=== PATIENT | male | born 1990 | race Caucasian/White ===

== ENCOUNTER 2020-08-28 09:24 | Emergency (ER) | payer OTHER ==
--- OUTSIDE RECORDS SUMMARY | 2020-08-28 09:26 | XMS REPORT | Continuity of Care Document ---
:1990 Author Organization [facility] t Address [address] [place] [address] Care Team Providers Name Role Phone Lab, Fam Pob I Attending Clinician Unavailable Problems This patient has no known problems. Allergies, Adverse Reactions, Alerts This patient has no known allergies or adverse reactions. Medications This patient has no known medications. Procedures This patient has no known procedures. Encounters Start End Encounter Admission Attending Care Care Encounter Source Date/Time Date/Time Type Type Clinicians Facility Department ID 2020-08-04 2020-08-04 Outpatient [facility] [id number] [facility] 00:00:00 00:00:00 [facility] 2020-06-27 2020-06-27 [facility] [id number] [facility] 2020-05-02 2020-05-02 Laboratory Lab, [facility] [id number] 16:38:25 16:58:25 Only Fam Pob I [facility] [id number] [place] [id number] [facility] [phone] [place] [address] [address] Results This patient has no known results.
[2020-08-28 10:11] LABS: Absolute Lymphocytes (CBC) 0.7 K/uL (0.7-4.9); Basophils % 0.1 % (0-1.3); Hematocrit 52.9 % (39.6-49.0); Lymphocytes % 4.9 % (15.3-44.8); MPV 8.6 fL (7.6-11.3); RBC Red Blood Cell Count 5.79 M/uL (4.33-5.43)
[2020-08-28] MEDS ORDERED: ONDANSETRON 4 MG/2 ML VIAL ONE ×2 (10:16→12:57)
[2020-08-28] MEDS ORDERED: NA CHLORIDE 0.9% 1,000 ML ONE ×2 (10:16→12:24)
[2020-08-28 10:36] LABS: Bilirubin Direct 0.2 mg/dL (0-0.2); Bilirubin Total 1.5 mg/dL (0.2-1.0); Protein, Total 9.4 g/dL (6.4-8.2)
[2020-08-28 10:37] LABS: Blood Morphology Comment NOT SEEN (NOT SEEN); Platelet Estimate ADEQ; White Blood Cell Scan OK (OK)
[2020-08-28] MEDS ORDERED: PROMETHAZINE INJ 25 MG/ML AMP ONE ×2 (10:44→11:56)
[2020-08-28] MEDS ORDERED: LORazepam 2 MG/ML VIAL ONE (12:18)
--- NOTE | 2020-08-28 12:31 | RAD REPORT ---
EXAM DESCRIPTION: CT - Abdomen Pelvis W Contrast - 08/28/2020 12:20 pm CLINICAL HISTORY: Abdominal pain COMPARISON: none. TECHNIQUE: Computed axial tomography of the abdomen pelvis was obtained. 100 cc Isovue-300 was admin istered intravenously. Oral contrast was not requested which limits evaluation of bowel and appendix. All CT scans are performed using dose optimization technique as appropriate and may include automated exposure control or mA/KV adjustment according to patient size. FINDINGS: The liver, spleen, pancreas, adrenal and kidneys appear unremarkable. There is no evidence of diverticulitis. Small hiatal hernia. Fluid is present within small bowel. The wall of several loops of jejunum are mi ldly thickened IMPRESSION: Mildly thickened wall of jejunal loops may indicate an enteritis
--- NOTE | 2020-08-28 13:31 | EDPHYS ---
Physician Documentation [facility] Name: Storm Valiente Age: 29 yrs Sex: Male : 1990 Arrival Date: 08/28/2020 Time: 09:27 Bed 8 Private MD: ED Physician Rome Howard HPI: 08/28 10:26 This 29 yrs old Male presents to ER via Ambulatory with complaints of jr8 Vomiting/Diarrhea. 10:26 The patient presents to the emergency department with nausea, vomiting, diarrhea. jr8 Onset: The symptoms/episode began/occurred acutely, 2 day(s) ago. Possible causes: unknown. The symptoms are aggravated by nothing. The symptoms are alleviated by nothing. Associated signs and symptoms: The patient has no apparent associated signs or symptoms. Severity of symptoms: At their worst the symptoms were moderate in the emergency department the symptoms are unchanged. The patient has not experienced similar symptoms in the past. The patient has not recently seen a physician. Historical: - Allergies: 09:35 No Known Allergies; aa5 - Home Meds: 09:35 Zyrtec Oral [Active]; aa5 - PMHx: 09:35 None; aa5 - PSHx: 09:35 None; aa5 - Immunization history:: Adult Immunizations up to date. - Social history:: Smoking status: Patient denies any tobacco usage or history of. ROS: 10:26 Eyes: Negative for injury, pain, redness, and discharge, ENT: Negative for injury, jr8 pain, and discharge, Neck: Negative for injury, pain, and swelling, Cardiovascular: Negative for chest pain, palpitations, and edema, Respiratory: Negative for shortness of breath, cough, wheezing, and pleuritic chest pain, Back: Negative for injury and pain, MS/Extremity: Negative for injury and deformity, Skin: Negative for injury, rash, and discoloration, Neuro: Negative for headache, weakness, numbness, tingling, and seizure. 10:26 Abdomen/GI: Positive for nausea, vomiting, and diarrhea, abdominal cramps. Exam: 10:26 Eyes: Pupils equal round and reactive to light, extra-ocular motions intact. Lids and jr8 lashes normal. Conjunctiva and sclera are non-icteric and not injected. Cornea within normal limits. Periorbital areas with no swelling, redness, or edema. ENT: Nares patent. No nasal discharge, no septal abnormalities noted. Tympanic membranes are normal and external auditory canals are clear. Oropharynx with no redness, swelling, or masses, exudates, or evidence of obstruction, uvula midline. Mucous membranes moist. Cardiovascular: Regular rate and rhythm with a normal S1 and S2. No gallops, murmurs, or rubs. Normal PMI, no JVD. No pulse deficits. Respiratory: Lungs have equal breath sounds bilaterally, clear to auscultation and percussion. No rales, rhonchi or wheezes noted. No increased work of breathing, no retractions or nasal flaring. Back: No spinal tenderness. No costovertebral tenderness. Full range of motion. Skin: Warm, dry with normal turgor. Normal color with no rashes, no lesions, and no evidence of cellulitis. MS/ Extremity: Pulses equal, no cyanosis. Neurovascular intact. Full, normal range of motion. Neuro: Awake and alert, GCS 15, oriented to person, place, time, and situation. Cranial nerves II-XII grossly intact. Motor strength 5/5 in all extremities. Sensory grossly intact. Cerebellar exam normal. Normal gait. 10:26 Abdomen/GI: Inspection: abdomen appears normal, Bowel sounds: active, all quadrants, Palpation: soft, in all quadrants, mild abdominal tenderness, in the abdomen diffusely, mass, is not appreciated, rebound tenderness, is not appreciated, voluntary guarding, is not appreciated, involuntary guarding, is not appreciated, Indicators: McBurney's point is not tender, Mock's sign is negative, Rovsing's sign is negative, Liver: tenderness, is not appreciated. Vital Signs: 09:34 BP 129 / 88; Pulse 105; Resp 24 S; Temp 98.2(TE); Pulse Ox 99% on R/A; Weight 79.38 kg aa5 (R); Height 5 ft. 11 in. (180.34 cm) (R); Pain 5/10; 09:47 BP 129 / 94; Pulse 106; Resp 18; Temp 98.2(O); Pulse Ox 99% on R/A; Weight 79.38 kg; ld1 Height 5 ft. 11 in. (180.34 cm); Pain 0/10; 10:49 BP 126 / 82; Pulse 87; Resp 18; Pulse Ox 99% ; ld1 11:54 BP 128 / 80; Pulse 80; Resp 18; Pulse Ox 100% ; ld1 12:51 BP 133 / 80; Pulse 82; Resp 18; Pulse Ox 99% on R/A; Pain 0/10; ld1 09:47 Body Mass Index 24.41 (79.38 kg, 180.34 cm) ld1 MDM: 09:40 Patient medically screened. jr8 13:28 Data reviewed: vital signs, nurses notes, lab test result(s), radiologic studies, CT jr8 scan. Data interpreted: Pulse oximetry: on room air is 99 %. Interpretation: normal. Counseling: I had a detailed discussion with the patient and/or guardian regarding: the historical points, exam findings, and any diagnostic results supporting the discharge/admit diagnosis, lab results, radiology results, the need for outpatient follow up, a family practitioner, a cycle touring guide, to return to the emergency department if symptoms worsen or persist or if there are any questions or concerns that arise at home. Response to treatment: the patient's symptoms have markedly improved after treatment, patient is well hydrated. Tolerating PO fluids at this time. 08/28 09:43 Order name: Basic Metabolic Panel [facility] 08/28 09:43 Order name: CBC with Diff 08/28 09:43 Order name: Hepatic Function; Complete Time: 10:49 [facility] 08/28 09:43 Order name: Lipase; Complete Time: 10:49 [facility] 08/28 09:44 Order name: Basic Metabolic Panel; Complete Time: 10:49 EDMS 08/28 09:44 Order name: CBC with Automated Diff; Complete Time: 10:49 EDMS 08/28 10:37 Order name: CBC Smear Scan; Complete Time: 10:49 EDMS 08/28 12:06 Order name: CT Abd/Pelvis - IV Contrast Only; Complete Time: 12:34 [facility] 08/28 12:07 Order name: Stool Culture 08/28 12:07 Order name: Rotavirus Antigen [facility] 08/28 12:07 Order name: Ova And Parasites 08/28 12:07 Order name: Occult Blood [facility] 08/28 12:07 Order name: Fecal Leukocyte Stain 08/28 09:43 Order name: IV Saline Lock; Complete Time: 09:47 08/28 09:43 Order name: Labs collected and sent; Complete Time: 09:47 jr8 Administered Medications: 10:05 Drug: NS 0.9% 1000 ml Route: IV; Rate: 1000 ml; Site: left antecubital; sr5 10:07 Drug: Zofran (Ondansetron) 4 mg Route: IVP; Site: right antecubital; sr5 10:20 Follow up: Response: No adverse reaction ld1 10:28 Drug: Phenergan 12.5 mg Route: IVP; Site: left antecubital; ld1 10:54 Follow up: Response: No adverse reaction ld1 12:14 Drug: Phenergan 12.5 mg Route: IVP; Site: left antecubital; ld1 12:40 Follow up: Response: No adverse reaction ld1 12:14 Drug: Ativan 0.5 mg Route: IVP; Site: left antecubital; ld1 12:40 Follow up: Response: No adverse reaction ld1 12:40 Drug: Zofran (Ondansetron) 4 mg Route: IVP; Site: left antecubital; ld1 12:54 Follow up: Response: No adverse reaction ld1 Disposition: 08/28/20 13:30 Discharged to Home. Impression: Acute Gastroenteritis, Vomiting. - Condition is Stable. - Discharge Instructions: Nausea and Vomiting, Adult, Viral Gastroenteritis, Adult. - Prescriptions for Bentyl 20 mg Oral Tablet - take 1 tablet by ORAL route every 6 hours As needed; 20 tablet. promethazine 25 mg Oral Tablet - take 1 tablet by ORAL route every 6 hours As needed; 20 tablet. - Medication Reconciliation Form, Thank You Letter, Antibiotic Education, Prescription Opioid Use form. - Follow up: Berlin Tovar MD; When: 1 week; Reason: Recheck today's complaints, Continuance of care, Re-evaluation by your physician. - Problem is new. - Symptoms have improved. Addendum: 08/30/2020 07:13 Co-signature as Attending Physician, Rome Howard MD I agree with the assessment and k dr plan of care. Signatures: Dispatcher [employer] EDND Rome Howard MD MD kdr Calderon, Audri RN RN aa5 Luis Doss PA PA jr8 Dk Heranndez RN RN sr5 Letty Kapadia RN RN ld1 Corrections: (The following items were deleted from the chart) 08/28 13:43 13:30 08/28/2020 13:30 Discharged to Home. Impression: Acute Gastroenteritis; Vomiting. ld1 Condition is Stable. Forms are Medication Reconciliation Form, Thank You Letter, Antibiotic Education, Prescription Opioid Use. Follow up: Berlin Tovar; When: 1 week; Reason: Recheck today's complaints, Continuance of care, Re-evaluation by your physician. Problem is new. Symptoms have improved. jr8
--- NOTE | 2020-08-28 13:31 | ER ---
Nurse's Notes [facility] Name: Storm Valiente Age: 29 yrs Sex: Male : 1990 Arrival Date: 08/28/2020 Time: 09:27 Bed 8 Private MD: Diagnosis: Acute Gastroenteritis;Vomiting Presentation: 08/28 09:34 Chief complaint: Patient states: lower abd pain and N/V/D that began 2 days ago. aa5 Coronavirus screen: diarrhea, nausea, vomiting. Ebola Screen: Patient negative for fever greater than or equal to 101.5 degrees Fahrenheit, and additional compatible Ebola Virus Disease symptoms. Initial Sepsis Screen: Does the patient meet any 2 criteria? No. Patient's initial sepsis screen is negative. Does the patient have a suspected source of infection? No. Patient's initial sepsis screen is negative. Risk Assessment: Do you want to hurt yourself or someone else? Patient reports no desire to harm self or others. Onset of symptoms was August 2020. 09:34 Method Of Arrival: Ambulatory aa5 09:34 Acuity: JAG 3 aa5 Historical: - Allergies: 09:35 No Known Allergies; aa5 - Home Meds: 09:35 Zyrtec Oral [Active]; aa5 - PMHx: 09:35 None; aa5 - PSHx: 09:35 None; aa5 - Immunization history:: Adult Immunizations up to date. - Social history:: Smoking status: Patient denies any tobacco usage or history of. Screenin:47 Abuse screen: Denies threats or abuse. Denies injuries from another. Nutritional ld1 screening: No deficits noted. Tuberculosis screening: No symptoms or risk factors identified. Fall Risk IV access (20 points). Total Watts Fall Scale indicates No Risk (0-24 pts). Assessment: 09:47 General: Appears in no apparent distress. uncomfortable, Behavior is calm, cooperative, ld1 appropriate for age. Pain: Denies pain. Neuro: Level of Consciousness is awake, alert, obeys commands, Oriented to person, place, time, situation. Cardiovascular: Patient's skin is warm and dry. Respiratory: Airway is patent Respiratory effort is even, unlabored, Respiratory pattern is regular, symmetrical. GI: Abdomen is flat, non-distended, Patient states he has been vomiting and having diarrhea since Tuesday08/26/20. Reports diarrhea, nausea, vomiting. : No deficits noted. No signs and/or symptoms were reported regarding the genitourinary system. EENT: No deficits noted. No signs and/or symptoms were reported regarding the EENT system. Derm: No deficits noted. No signs and/or symptoms reported regarding the dermatologic system. Musculoskeletal: No deficits noted. No signs and/or symptoms reported regarding the musculoskeletal system. 09:51 Reassessment: ERP at bedside discussing POC. ld1 10:20 Reassessment: Patient c/o nausea. Notified ERP. See MAR for orders. ld1 11:51 Reassessment: Patient c/o nausea. Notified ERP. See MAR for orders. ld1 12:51 Reassessment: No changes from previously documented assessment. Patient and/or family ld1 updated on plan of care and expected duration. Pain level reassessed. Patient is alert, oriented x 3, equal unlabored respirations, skin warm/dry/pink. Patient denies pain at this time. Vital Signs: 09:34 BP 129 / 88; Pulse 105; Resp 24 S; Temp 98.2(TE); Pulse Ox 99% on R/A; Weight 79.38 kg aa5 (R); Height 5 ft. 11 in. (180.34 cm) (R); Pain 5/10; 09:47 BP 129 / 94; Pulse 106; Resp 18; Temp 98.2(O); Pulse Ox 99% on R/A; Weight 79.38 kg; ld1 Height 5 ft. 11 in. (180.34 cm); Pain 0/10; 10:49 BP 126 / 82; Pulse 87; Resp 18; Pulse Ox 99% ; ld1 11:54 BP 128 / 80; Pulse 80; Resp 18; Pulse Ox 100% ; ld1 12:51 BP 133 / 80; Pulse 82; Resp 18; Pulse Ox 99% on R/A; Pain 0/10; ld1 09:47 Body Mass Index 24.41 (79.38 kg, 180.34 cm) ld1 ED Course: 09:27 Patient arrived in ED. as 09:34 Arm band placed on. aa5 09:35 Triage completed. aa5 09:40 Luis Doss PA is PHCP. jr8 09:40 Rome Howard MD is Attending Physician. jr8 09:41 Letty Kapadia, RN is Primary Nurse. ld1 09:47 Patient has correct armband on for positive identification. Placed in gown. Bed in low ld1 position. Call light in reach. Side rails up X 1. Door closed. Noise minimized. Warm blanket given. 09:47 No provider procedures requiring assistance completed. ld1 12:19 CT Abd/Pelvis - IV Contrast Only In Process Unspecified. EDMS 13:29 Berlin Tovar MD is Referral Physician. jr8 13:43 IV discontinued, intact, bleeding controlled, No redness/swelling at site. ld1 14:36 stool sample collected, sent to lab. Approx 500 mL liquid/green/brown stool. sr5 Administered Medications: 10:05 Drug: NS 0.9% 1000 ml Route: IV; Rate: 1000 ml; Site: left antecubital; sr5 10:07 Drug: Zofran (Ondansetron) 4 mg Route: IVP; Site: right antecubital; sr5 10:20 Follow up: Response: No adverse reaction ld1 10:28 Drug: Phenergan 12.5 mg Route: IVP; Site: left antecubital; ld1 10:54 Follow up: Response: No adverse reaction ld1 12:14 Drug: Phenergan 12.5 mg Route: IVP; Site: left antecubital; ld1 12:40 Follow up: Response: No adverse reaction ld1 12:14 Drug: Ativan 0.5 mg Route: IVP; Site: left antecubital; ld1 12:40 Follow up: Response: No adverse reaction ld1 12:40 Drug: Zofran (Ondansetron) 4 mg Route: IVP; Site: left antecubital; ld1 12:54 Follow up: Response: No adverse reaction ld1 Outcome: 13:30 Discharge ordered by . jr8 13:43 Discharged to home ld1 13:43 Condition: stable 13:43 Discharge instructions given to patient, family. 13:43 Patient left the ED. ld1 Signatures: Dispatcher [employer] Maty Romero Audri, RN RN aa5 Luis Doss PA PA jr8 Dk Hernandez RN RN sr5 Letty Kapadia LAZARO RN ld1 Corrections: (The following items were deleted from the chart) 11:54 10:49 BP 128 / 80; Pulse 80bpm; Resp 18bpm; Pulse Ox 100%; ld1 ld1
[2020-08-29 03:13] VITALS: TEMP 98.2
[2020-08-29 03:16] VITALS: BP 133/80; O2SAT 99
== END 2020-08-28 13:43 | disposition home or self-care (01) ==
LOC: ER 09:24
DX: K52.9 Noninfective gastroenteritis and colitis, unspecified (principal)
CPT/HCPCS: 87045; 85025; 80048; 36415; 89055; 87177; 82274; 80076; 87046; 87209; 83690; 87425; 74177; 99283; Q9967; J2550 ×2; J7030 ×2; J2405 ×2

== ENCOUNTER 2023-01-20 00:06 | Emergency (ER) | payer BC, OTHER ==
--- OUTSIDE RECORDS SUMMARY | 2023-01-20 00:09 | XMS REPORT | Continuity of Care Document ---
:[address] [facility] t Address [address] [facility]. [address] [place] [address] Care Team Providers Name Role Phone PCP, PATIENT DOES NOT HAVE A Primary Care Physician Unavaila ble Cait Edwards Attending Clinician Unavailable Only, Ang Db Test Attending Clinician Unavailable Abiodun Edwards Attending Clinician ABIODUN TAMEZ Attending Clinician Unavailable Lab, Adc Fam Pob I Attending Clinician Unavailable Altagracia Rivero Attending Clinician ALTAGRACIA PIERCE Attending Clinician Unavailable Payers Payer Name Policy Type Policy Number Effective Date Expiration Date S yiselhomer [facility] [id number] 2020 00:00:00 L GBRP C1 [id number] 2020 Common Spiri t CLAIMS 00:00:00 [facility] Problems Condition Condition Condition Status Onset Resolution Last Treating Co mments Source Name Details Category Date Date Treatment Clinician Date [id number] Encounter Problem Active Com mon for [facility] adult [facility] examinatio Medica l n without Center abnormal findings Allergies, Adverse Reactions, Alerts Allergy Allergy Status Severity Reaction(s) Onset Inactive Treating Comm ents Source Name Type Date Date Clinician NO KNOWN Drug Active [facility]ERGIE Class [facility] Social History Social Habit Start Date Stop Date Quantity Comments Source History of Tobacco Use Co mmon [facility] Sex Assigned At Com mon [facility] Exposure to SARS-CoV-2 Yes Un [facility] (event) [facility] Smoking Status Start Date Stop Date Source Unknown if ever smoked [facility] [place] Former Smoker 2020-06-27 00:00:00 2020-06-27 00:00:00 [facility] nter Medications Ordered Filled Start Stop Current Ordering Indication Dosage Frequency Signature Comments Components Source Medication Medication Date Date Medication? Clinician (SIG) Name Name No Known No Known No Common Medications Medications [facility] Vital Signs Vital Name Observation Time Observation Value Comments Source weight 2020-06-27 11:00:00 184.0 [lb_av] [facility] temperature 2020-06-27 11:00:00 97.4 [degF] [facility] bmi 2020-06-27 11:00:00 25.66 kg/m2 [facility] oximetry 2020-06-27 11:00:00 99 % [facility] respiratory rate 2020-06-27 11:00:00 16 /min Comm on [facility] blood pressure 2020-06-27 11:00:00 129 mm[Hg] [facility] systolic [facility] blood pressure 2020-06-27 11:00:00 69 mm[Hg] [facility] diastolic [facility] height 2020-06-27 11:00:00 71 [in_i] [facility] Procedures This patient has no known procedures. Encounters Start End Encounter Admission Attending Care Care Encounter Source Date/Time Date/Time Type Type Clinicians Facility Department ID 2021-06-17 Outpatient Jay, STLMLC [facility] [id number] Common 12:29:13 Cait [id number] [facility] 2021-05-24 2021-05-24 Laboratory Only, Ang Db Test [facility] 1.2.8 [id number] Univers 18:30:00 18:45:00 Only [facility] [place] [id number] ity [facility] [id number] González as KYLE?BLEA [phone] Me dical [address] MEDICAL OFFICE BUILDING 2021-05-24 2021-05-24 [facility] [id number] Univers 18:30:00 18:41:28 ABIODUN [facility] 2021-05-24 2021-05-24 Outpatient R [facility] [id number] Univers 18:30:00 18:30:00 [id number] [facility] 2020-08-04 2020-08-04 (TEL) STLMLC ST[facility] [id number] Co mmon 00:00:00 00:00:00 Spirit - [facility] 2020-06-27 2020-06-27 PREV VISIT STLMLC STLMLC [id number] Common 00:00:00 00:00:00 NEW AGE Spirit 17-[address] [facility] 2020-05-02 2020-05-02 Laboratory Lab, [facility] Fam Pob I [facility] 1.2. [id number] Univers 16:38:25 16:58:25 Only Altagracia [facility] [id number] ity of [place] [id number] González as Professio [phone] [place] dical [address] 2020-05-02 2020-05-02 Laboratory Lab, [facility] [id number] 16:38:25 16:58:25 Only Fam Pob I Health [id number] [place] [id number] Professio [phone] [place] [address] [address] 2020-05-02 2020-05-02 Outpatient R [facility] [id number] Univers 16:40:00 16:40:00 ALTAGRACIA gary [facility] Results This patient has no known results.
[2023-01-20] MEDS ORDERED: KETOROLAC 30 MG/ML INJ ONE (00:42)
[2023-01-20] MEDS ORDERED: CYCLOBENZAPRINE 10 MG TAB ONE (00:42)
--- NOTE | 2023-01-20 01:25 | EDPHYS ---
Physician Documentation [facility] Name: Storm Valiente Age: 32 yrs Sex: Male : 1990 Arrival Date: 01/20/2023 Time: 00:06 Bed 12 Private MD: ED Physician Myron Quinn HPI: 01/20 01:23 This 32 yrs old Male presents to ER via Wheelchair with complaints of Foot Injury. kb 01:23 The patient presents with pain, that is acute. The complaints affect the left foot. kb Context: The problem was sustained outdoors, resulted from jumping over a fence, the patient can fully bear weight, the patient is able to ambulate. Onset: The symptoms/episode began/occurred at 19:00. Modifying factors: The symptoms are alleviated by nothing, the symptoms are aggravated by weight bearing, movement. Associated signs and symptoms: The patient has no apparent associated signs or symptoms. Severity of symptoms: At their worst the symptoms were mild, moderate, in the emergency department the symptoms are unchanged. The patient has not experienced similar symptoms in the past. The patient has not recently seen a physician. Historical: - Allergies: 00:24 No Known Allergies; lg3 - Home Meds: 00:24 Zyrtec Oral [Active]; lg3 - PMHx: 00:24 None; lg3 - PSHx: 00:24 None; lg3 - Immunization history:: Adult Immunizations up to date, Client reports receiving the 2nd dose of the Covid vaccine. - Social history:: Smoking status: Patient denies any tobacco usage or history of. Patient uses alcohol, occasionally. ROS: 01:21 Constitutional: Negative for fever, chills, and weight loss. kb 01:21 MS/extremity: Positive for pain, of the left foot and medial aspect of left thigh. 01:21 All other systems are negative. Exam: 01:21 Constitutional: This is a well developed, well nourished patient who is awake, alert, kb and in no acute distress. Head/Face: Normocephalic, atraumatic. ENT: Moist Mucous membranes Cardiovascular: Regular rate and rhythm with a normal S1 and S2. No gallops, murmurs, or rubs. No pulse deficits. Respiratory: Respirations even and unlabored. No increased work of breathing. Talking in full sentences Abdomen/GI: Soft, non-tender. No distention Skin: Warm, dry with normal turgor. Normal color. Neuro: Awake and alert, GCS 15, oriented to person, place, time, and situation. Moves all extremities. Normal gait. 01:21 Musculoskeletal/extremity: Extremities: grossly normal except: noted in the left foot: pain, ROM: intact in all extremities, Circulation is intact in all extremities. Sensation intact. Weight bearing: able to fully bear weight. Vital Signs: 00:23 BP 119 / 87; Pulse 75; Resp 17 S; Temp 97.8(O); Pulse Ox 99% on R/A; Weight 95.25 kg lg3 (R); Height 5 ft. 11 in. (R); 00:23 Body Mass Index 29.29 (95.25 kg, 180.34 cm) lg3 MDM: 00:22 Patient medically screened. kb 01:22 Differential diagnosis: dislocation, closed fracture, contusion, sprain. Data reviewed: kb vital signs, nurses notes. Counseling: I had a detailed discussion with the patient and/or guardian regarding the historical points, exam findings, and any diagnostic results supporting the discharge/admit diagnosis, radiology results, the need for outpatient follow up, a orthopedic surgeon, to return to the emergency department if symptoms worsen or persist or if there are any questions or concerns that arise at home. 01/20 00:24 Order name: Foot Left 3 View XRAY kb Administered Medications: 00:38 Drug: Cyclobenzaprine PO 10 mg Route: PO; kl 00:38 Drug: Ketorolac IM 30 mg Route: IM; Site: right deltoid; kl Disposition: 01:42 Co-signature as Attending Physician, Myron Quinn MD I agree with the assessment sp4 and plan of care. I reviewed the patient's care provided by the Advanced Practice Provider and agree with the diagnosis and treatment plan. Disposition Summary: 01/20/23 01:24 Discharge Ordered Location: Home Condition: Stable kb Diagnosis - Sprain of foot kb - Strain of left quadriceps muscle, fascia and tendon kb Followup: kb - With: Emergency Department - When: As needed - Reason: Worsening of condition Followup: kb - With: Private Physician - When: 2 - 3 days - Reason: Recheck today's complaints, Continuance of care, Re-evaluation by your physician Discharge Instructions: - Discharge Summary Sheet kb - Foot Sprain kb - Muscle Strain, [id number] kb Forms: - Medication Reconciliation Form kb - Thank You Letter kb - Antibiotic Education kb - Prescription Opioid Use kb - Patient Portal Instructions kb - Leadership Thank You Letter kb - Work release form Prescriptions: - Diclofenac Sodium 75 mg Oral tablet,delayed release (DR/EC) - take 1 tablet by ORAL route 2 times per day As needed; 30 tablet; Refills: 0, kb Product Selection Permitted - orphenadrine citrate 100 mg Oral Tablet Sustained Release - take 1 tablet by ORAL route 2 times per day As needed; 20 tablet; Refills: 0, kb Product Selection Permitted Signatures: Dispatcher [employer] EDGiuliana Patel, VAMP MAKER-C VAMP MAKER-Jessie Moss, RN RN Yokasta Morris RN RN lg3 Myron Quinn MD MD sp4
--- NOTE | 2023-01-20 01:25 | ER ---
Nurse's Notes [facility] Name: Storm Valiente Age: 32 yrs Sex: Male : 1990 Arrival Date: 01/20/2023 Time: 00:06 Bed 12 Private MD: Diagnosis: Sprain of foot;Strain of left quadriceps muscle, fascia and tendon Presentation: 01/20 00:23 Chief complaint: Patient states: hurt my left foot tonight jumping over a fence. lg3 Coronavirus screen: Client denies travel out of the [place] in the last 14 days. At this time, the client does not indicate any symptoms associated with coronavirus-19. Ebola Screen: No symptoms or risks identified at this time. Initial Sepsis Screen: Does the patient meet any 2 criteria? No. Patient's initial sepsis screen is negative. Does the patient have a suspected source of infection? No. Patient's initial sepsis screen is negative. Risk Assessment: Do you want to hurt yourself or someone else? Patient reports no desire to harm self or others. Onset of symptoms was January 19, 2023. 00:23 Method Of Arrival: Wheelchair lg3 00:23 Acuity: JAG 4 lg3 Triage Assessment: 00:24 General: Appears in no apparent distress. uncomfortable, Behavior is calm, cooperative. lg3 Pain: Complains of pain in left foot. EENT: No deficits noted. No signs and/or symptoms were reported regarding the EENT system. Neuro: No deficits noted. Da Silva Agitation-Sedation Scale (RASS): 0 - Alert and Calm Level of Consciousness is awake, alert, obeys commands, Oriented to person, place, time, situation. Cardiovascular: No deficits noted. Denies chest pain, shortness of breath, Capillary refill < 3 seconds Clubbing of nail beds is absent JVD is absent Patient's skin is warm and dry. Respiratory: No deficits noted. Airway is patent Respiratory effort is even, unlabored, Respiratory pattern is regular, symmetrical. GI: No deficits noted. No signs and/or symptoms were reported involving the gastrointestinal system. : No deficits noted. No signs and/or symptoms were reported regarding the genitourinary system. Derm: No deficits noted. No signs and/or symptoms reported regarding the dermatologic system. Musculoskeletal: Circulation, motion, and sensation intact. Range of motion: intact in all extremities, Swelling present in left foot Reports pain in left foot. Historical: - Allergies: 00:24 No Known Allergies; lg3 - Home Meds: 00:24 Zyrtec Oral [Active]; lg3 - PMHx: 00:24 None; lg3 - PSHx: 00:24 None; lg3 - Immunization history:: Adult Immunizations up to date, Client reports receiving the 2nd dose of the Covid vaccine. - Social history:: Smoking status: Patient denies any tobacco usage or history of. Patient uses alcohol, occasionally. Screenin:34 [facility] ED Fall Risk Assessment (Adult) History of falling in the last 3 months, kl including since admission Yes- single mechanical fall (1 pt) Confusion or Disorientation No (0 pts) Intoxicated or Sedated No (0 pts) Impaired Gait Yes (1 pt) Mobility Assist Device Used No (0 pt) Altered Elimination No (0 pt) Score/Fall Risk Level 0 - 2 = Low Risk Oriented to surroundings, Maintained a safe environment. Abuse screen: Denies threats or abuse. Nutritional screening: No deficits noted. Tuberculosis screening: No symptoms or risk factors identified. Assessment: 01:34 Reassessment: Patient appears in no apparent distress at this time. Patient states kl feeling better. Patient states symptoms have improved. Vital Signs: 00:23 BP 119 / 87; Pulse 75; Resp 17 S; Temp 97.8(O); Pulse Ox 99% on R/A; Weight 95.25 kg lg3 (R); Height 5 ft. 11 in. (R); 00:23 Body Mass Index 29.29 (95.25 kg, 180.34 cm) lg3 ED Course: 00:20 Patient arrived in ED. ag3 00:21 Giuliana Pastrana FNP-C is PHCP. kb 00:22 Myron Quinn MD is Attending Physician. kb 00:24 Triage completed. lg3 00:24 Arm band placed on left wrist. lg3 00:47 Foot Left 3 View XRAY In Process Unspecified. EDMS 01:34 No provider procedures requiring assistance completed. Patient did not have IV access kl during this emergency room visit. Administered Medications: 00:38 Drug: Cyclobenzaprine PO 10 mg Route: PO; kl 00:38 Drug: Ketorolac IM 30 mg Route: IM; Site: right deltoid; kl Outcome: 01:24 Discharge ordered by . aldair 01:35 Discharged to home ambulatory. kl 01:35 Condition: stable 01:35 Discharge instructions given to patient, Instructed on discharge instructions, follow up and referral plans. medication usage, Demonstrated understanding of instructions, follow-up care, medications, Prescriptions given X 2. 01:35 Patient left the ED. kl 01:56 Patient left the ED. Signatures: Dispatcher [employer] EDGiuliana Patel, KELLY-C KELLY-Jessie Moss, RN RN Samantha Schilling Lacie, RN RN lg3
[2023-01-20 01:52] VITALS: BP 119/87; TEMP 97.8; O2SAT 99
--- NOTE | 2023-01-20 14:12 | RAD REPORT ---
EXAM DESCRIPTION: RAD - Foot Left 3 View - 01/20/2023 12:45 am [facility]: XR FOOT 3 OR MORE VIEWS CLINICAL HISTORY: 32 years Male, PAIN COMPARISON: None. FINDINGS: 3 views of the left foot. No acute fracture or dislocation. 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 There is mild dorsal soft tissue edema. IMPRESSION: Mild edema without acute fracture. 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 Electronically signed by: India Flores MD 01/20/2023 1:13 AM CDT Due to temporary technical issues with the PACS/Fluency reporting system, reports are being signed by the in house radiologists without review as a courtesy to insure prompt reporting. The interpreting radiologist is fully responsible for the content of the report.
== END 2023-01-20 01:56 | disposition home or self-care (01) ==
LOC: ER 00:06
DX: S93.602A Unspecified sprain of left foot, initial encounter (principal); S76.112A Strain of left quadriceps muscle, fascia and tendon, initial encounter
CPT/HCPCS: 96372; 99284